=== PATIENT | female | born 1975 | race Caucasian/White ===

== ENCOUNTER 2019-06-25 18:23 | Emergency (ER) | payer OTHER ==
[~2019-06-25] VITALS: Ht 175.3 cm; Wt 98.0 kg
[2019-06-25] MEDS ORDERED: AVALIDE (19:15)
[2019-06-25] MEDS ORDERED: TOPROL (19:17)
== END 2019-06-26 02:28 | disposition home or self-care (01) ==
LOC: ER 18:23
DX: R07.89 Other chest pain (principal)